=== PATIENT | male | born 1990 | race Asian ===

== ENCOUNTER 2023-06-18 21:07 | Emergency (ER) | payer OTHER ==
[2023-06-18 21:11] VITALS: BP 138/93; PULSE 84; RESP 18; TEMP 97.5; BMI 28.4
[2023-06-18 21:52] LABS: PH,URINE 5.5 (5.0-8.0); URINE APPEARANCE CLEAR; URINE BILIRUBIN NEGATIVE (NEGATIVE); URINE COLOR YELLOW; URINE GLUCOSE (UA) NEGATIVE (NEGATIVE); URINE KETONE NEGATIVE (NEGATIVE); URINE LEUK ESTERASE NEGATIVE (NEGATIVE); URINE NITRITE NEGATIVE (NEGATIVE); URINE PROTEIN NEGATIVE (NEGATIVE); URINE UROBILINOGEN 0.2 mg/dL (0.2-1.0)
== END 2023-06-18 22:18 | disposition home or self-care (01) ==
LOC: JER 21:07
DX: R10.30 Lower abdominal pain, unspecified (principal); K59.00 Constipation, unspecified
CPT/HCPCS: 81003; 87086; 99283-25